=== PATIENT | female | born 1980 | race Caucasian/White ===

== ENCOUNTER 2016-07-08 07:33 | Day surgery (SDC) | payer BC ==
[~2016-07-08 07:33] MED LIST: Lactated Ringers 1,000 ML IV SCH; Lidocaine 2% 5 ML SDV ONE; Midazolam 1 MG/ML 2 ML SDV ONE; Propofol 200 MG/20 ML SDV ONE; Rocuronium 10 MG/ML 10 ML Syringe ONE; Sodium Chloride 0.9% 10 ML Syringe FLUSH PRN; Sodium Chloride 0.9% 2.5 ML Syringe FLUSH PRN; ceFAZolin 2 GM in Premix Bag 1 BAG IV ONE; fentaNYL 100 MCG/2 ML SDV ONE
[2016-07-08] MEDS ORDERED: Succinylcholine/Normal Saline 200 MG/10 ML Syringe IV ONE (07:39)
[2016-07-08] MEDS ORDERED: Ondansetron 4 MG/2 ML SDV ONE ×2 (08:23→14:42)
[2016-07-08] MEDS ORDERED: Scopolamine 1.5 MG Transdermal Patch TRDERM PRN (08:34)
--- NOTE | 2016-07-08 08:41 | PCM.PREANE ---
Preanesthetic Assessment - ANESTHESIA/TRANSFUSION/FAMILY HX Anesthesia/Transfusion History: Prior Anesthesia Type of Anesthesia Reaction: Reports: Excessive Nausea/Vomiting (scop patch, pepcid, intraop benadryl/decadron/zofran recommended). 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 Respiratory: Reports: no symptoms Cardiovascular: Reports: no symptoms GI: Reports: no symptoms Other: Reports: none - PHYSICAL ASSESSMENT O2 Sat by Pulse Oximetry: 99 RR: 16 Vital Signs: Last Vital Signs Temp 98.4 F 07/08/16 07:55 Pulse 67 07/08/16 07:55 Resp 16 07/08/16 07:55 BP 104/64 07/08/16 07:55 Pulse Ox 99 07/08/16 07:55 Height: 5 ft 4 in Weight: 137 lb NPO Status Date: 07/07/16 NPO Status Time: 18:00 ASA Class: 3 Mental Status: alert & oriented x3 Airway Class: Mallampati = 2 Dentition: Reports: broken tooth/teeth (very poor dentition - most teeth are black near the base; missing teeth especially upper left side; pt denies any loose teeth, but did inform pt that she is at a higher risk for a chipped or broken tooth d/t the current state of her dentition. Pt and verbalize understanding.), missing tooth/teeth Thyro-Mental Finger Breadths: 3 Mouth Opening Finger Breadths: 2 (TMJ) ROM/Head Extension: full Respiratory Status: lungs clear to auscultation bilaterally Cardiovascular Status: regular rate & rhythm, normal S1, S2, no murmur, blood pressure WNL - ALLERGIES Allergies/Adverse Reactions: Allergies Allergy/AdvReac Type Severity Reaction Status Date / Time acetaminophen [From Percocet] Allergy Itching Verified 06/26/16 08:10 amoxicillin Allergy Other Verified 06/26/16 08:10 codeine Allergy Itching Verified 06/26/16 08:10 crab Allergy Itching Verified 06/26/16 08:10 ketorolac [From Toradol] Allergy Vomiting Verified 06/26/16 08:10 latex Allergy Anaphylactic Verified 06/26/16 08:10 Shock meperidine HCl [From Demerol] Allergy Itching Verified 06/26/16 08:10 oxycodone HCl [From Percocet] Allergy Itching Verified 06/26/16 08:10 Penicillins Allergy Other Verified 06/26/16 08:10 prochlorperazine edisylate Allergy Anxiety Verified 06/26/16 08:10 [From Compazine] prochlorperazine maleate Allergy Anxiety Verified 06/26/16 08:10 [From Compazine] - BLOOD Blood Available: No Product(s) Available: None - ANESTHESIA PLAN Free Text/Narrative:: GETA with RSI - would recommend a smaller tube as airway looks irritated. Pt states she has 7/10 pain today, but when asked what she has been using for her gallbladder pain as well as her chronic pain she states "nothing" - states that she was taking tylenol up until a week ago when she came in for blood in her urine and was told her bilirubin was elevated. States the last time she had a pain pill was in april. Explained in depth that pain goes along with surgery - we will do our best to make that pain bearable, but her expectations need to be set prior to proceeding with this surgery. Pt and agree on this. Awaiting CMP to proceed with the case Medication Ordered: Antacids (pepcid), Other (scop patch for PONV) Preop Beta Sachin: No Anesthesia Type Planned: general anesthesia - ACKNOWLEDGEMENTS Pt an appropriate candidate for the planned anesthesia: Yes Alternatives and risks of anesthesia discussed w pt/guardian: Yes Pt/Guardian understands and agree with anesthesia plan: Yes PreAnesthesia Questionnaire HEENT History: Reports: Other (see below) (Pt states she was worked up by an ENT for her reflux - she has not been taking her omeprazole because she states she has been too sick, however her airway does look red and irritated.) Other HEENT History: wears glasses Cardiovascular History: Reports: None Respiratory History: Reports: Asthma Other Respiratory History: states asthma in the past as child - no current inhaler Gastrointestinal History: Reports: GERD (has not been taking omeprazole - irritated throat - states she was told that her reflux causes her to have airway spasms) Genitourinary History: Reports: Renal calculus (hx of stones and bilateral kidney cysts) ARTIST MODEL History: Reports: Musculoskeletal History: Reports: Back pain, chronic, Fracture, Fibromyalgia, Other (see below) Other Musculoskeletal History: hx of fx toe Neurological History: Reports: None Psychiatric History: Reports: Anxiety, Depression Endocrine/Metabolic History: Reports: Other (see below) Other Endocrine/Metabolic History: has thyroid nodules Hematologic History: Reports: None Immunologic History: Reports: None Oncologic (Cancer) History: Reports: None Dermatologic History: Reports: None - Infectious Disease History Infectious Disease History: Reports: Chicken pox - Past Surgical History Head Surgeries/Procedures: Reports: None HEENT Surgical History: Reports: None Cardiovascular Surgical History: Reports: None Respiratory Surgical History: Reports: None GI Surgical History: Reports: Appendectomy Female Surgical History: Reports: section, Cystectomy (ovarian cyst drained), Hysterectomy, Lithotripsy/ESWL, Tubal ligation, Other (see below) Other Female Surgeries/Procedures: Laparoscopy x2 Endocrine Surgical History: Reports: None Neurological Surgical History: Reports: None Oncologic Surgical History: Reports: None Dermatological Surgical History: Reports: None - SUBSTANCE USE Smoking Status *Q: Current Every Day Smoker (1/2 ppd) Tobacco Use Within Last Twelve Months: Cigarettes Second Hand Smoke Exposure: Yes Days Per Week of Alcohol Use: 0 Recreational Drug Use History: No - HOME MEDS Home Medications: Home Meds EPINEPHrine [Epipen] 1 dose SQ ASDIRECTED PRN 04/08/16 [History] Omeprazole 20 mg PO BID 07/03/16 [History] - CURRENT (IN HOUSE) MEDS Current Meds: Current Medications Famotidine (Pepcid) 20 mg IVPUSH .ONETIME MAGGIE Lactated Ringer's (Ringers, Lactated) 1,000 mls @ 125 mls/hr IV ASDIRECTED MAGGIE Last Admin: 07/08/16 07:57 Dose: 125 mls/hr Scopolamine (Transderm-Scop) 1.5 mg TRDERM .ONCE PRN PRN Reason: Post Op Nausea Sodium Chloride (Saline Flush) 10 ml FLUSH ASDIRECTED PRN PRN Reason: Keep Vein Open Sodium Chloride (Saline Flush) 2.5 ml FLUSH ASDIRECTED PRN PRN Reason: Keep Vein Open Discontinued Medications Fentanyl (Sublimaze) Confirm Administered Dose 100 mcg .ROUTE .STK-MED ONE Stop: 07/08/16 07:28 Cefazolin Sodium/Dextrose 2 gm (/ Premix) 50 mls @ 100 mls/hr IV ONETIME ONE Stop: 07/07/16 14:33 Lidocaine (Xylocaine-Mpf 2%) Confirm Administered Dose 5 ml .ROUTE .STK-MED ONE Stop: 07/08/16 07:27 Midazolam HCl (Versed 1 Mg/Ml) Confirm Administered Dose 2 mg .ROUTE .STK-MED ONE Stop: 07/08/16 07:28 Ondansetron HCl (Zofran) Confirm Administered Dose 4 mg .ROUTE .STK-MED ONE Stop: 07/08/16 08:24 Propofol (Diprivan 20 Ml) Confirm Administered Dose 200 mg .ROUTE .STK-MED ONE Stop: 07/08/16 07:28 Rocuronium Call (Zemuron) Confirm Administered Dose 100 mg .ROUTE .STK-MED ONE Stop: 07/08/16 07:27 Succinylcholine Chloride (Succinylcholine In Ns Pf) 200 mg IV .STK-MED ONE Stop: 07/08/16 07:40
[2016-07-08] MEDS ORDERED: Famotidine 20 MG/2 ML SDV IVPUSH SCH (08:45)
[2016-07-08] MEDS ORDERED: Bupivacaine 0.5% 30 ML SDV ONE ×2 (08:46→13:21)
[2016-07-08 09:22] LABS: CHLORIDE,CL 110 mmol/L (98-110); SODIUM,NA 140 mmol/L (136-146)
--- NOTE | 2016-07-08 10:07 | PCM.SN ---
- Free Text/Narrative Note: Patient had preoperative CMP performed today that showed an elevated bilirubin. The patient had a previous HIDA which showed no evidence of obstruction but no corresponding labs around the time of the procedure. Because of this, I feel the safest option is to get an MRCP today to completely rule out any evidence of obstruction. If there is none, then the elevated bilirubin is most likely due to biliary sludge and we will perform her laparoscopic cholecystectomy tomorrow.
[2016-07-08] MEDS ORDERED: Gadobutrol 10 mMOL/10 ML SDV IVPUSH STA (10:19)
--- NOTE | 2016-07-08 11:09 | PCM.SN ---
- Free Text/Narrative Note: MRCP showed no evidence of biliary obstruction. Will go to the OR today for laparoscopic possible open cholecystectomy.
[2016-07-08] MEDS ORDERED: Rocuronium 10 MG/ML 10 ML Syringe ONE (12:49)
[2016-07-08] MEDS ORDERED: Propofol 200 MG/20 ML SDV ONE (12:49)
[2016-07-08] MEDS ORDERED: fentaNYL 100 MCG/2 ML SDV ONE ×2 (12:49→14:42)
[2016-07-08] MEDS ORDERED: Midazolam 1 MG/ML 2 ML SDV ONE (12:49)
[2016-07-08] MEDS ORDERED: Lidocaine 2% 5 ML SDV ONE (12:49)
[2016-07-08] MEDS ORDERED: HYDROmorphone 2 MG/ML Syringe ONE (13:55)
[2016-07-08] MEDS ORDERED: Labetalol 5 MG/ML 5 ML Syringe ONE (14:23)
[2016-07-08] MEDS ORDERED: Neostigmine Methylsulfate 1 MG/ML 5 ML Syringe ONE (14:42)
[2016-07-08] MEDS ORDERED: Acetaminophen/HYDROcodone 325-5 MG Tab PO PRN (15:00)
--- NOTE | 2016-07-08 15:00 | PCM.OPNOTE ---
- General Post-Op/Procedure Note Date of Surgery/Procedure: 07/08/16 Operative Procedure(s): laparoscopic cholecystectomy Findings: Gallbladder with adhesions around the body Pre Op Diagnosis: biliary dyskinesia Post-Op Diagnosis: same Anesthesia Technique: General ET tube Primary Surgeon: Sally Morales Pathology: gallbladder EBL in mLs: 5 Condition: Good
[2016-07-08] MEDS: fentaNYL 100 MCG/2 ML SDV IVPUSH PRN ×4 (15:20→15:35)
--- NOTE | 2016-07-08 15:51 | PCM.POSTAN ---
POST ANESTHESIA ASSESSMENT - MENTAL STATUS Mental Status: alert, oriented - RESPIRATORY Respiratory Status: respiratory rate WNL, airway patent, O2 saturation stable - CARDIOVASCULAR CV Status: pulse rate WNL, blood pressure stable - GASTROINTESTINAL GI Status: no symptoms - PAIN Pain Score: 5 - POST OP HYDRATION Hydration Status: adequate & stable
--- NOTE | 2016-07-08 16:07 | MR ---
EXAMINATION: MRI abdomen with and without contrast HISTORY: Hyperbilirubinemia COMPARISON: CT dated 06/26/2016 TECHNIQUE: Multiplanar multisequence images obtained through the abdomen before and following the ad ministration of Gadavist. FINDINGS: There are a few tiny cyst noted within the breasts. The liver appears normal in signal. No focal mass. The spleen, adrenal glands, and pancreas appear normal. The gallbladder appears normal. The common bile duct measures 2 to 3 mm in diameter without filling defect. The kidneys enhance and function symmetrically without evidence of obstructive uropathy. Small renal cysts are noted. No ab dominal ascites. No abnormal bone marrow signal. IMPRESSION: 1. Grossly unremarkable MRI of the abdomen/MRCP.
[2016-07-08 16:48] VITALS: BP 121/78
--- NOTE | 2016-07-08 16:57 | PCM48HPAN ---
Post Anesthesia Note - EVALUATION WITHIN 48HRS OF ANESTHETIC Vital Signs in Normal Range: Yes Patient Participated in Evaluation: Yes Respiratory Function Stable: Yes Airway Patent: Yes Cardiovascular Function Stable: Yes Hydration Status Stable: Yes Pain Control Satisfactory: Yes Nausea and Vomiting Control Satisfactory: Yes Mental Status Recovered: Yes
--- NOTE | 2016-07-08 23:38 | OR ---
SURGEON: STEWART LEVY MD DATE OF PROCEDURE: 07/08/2016 PREOPERATIVE DIAGNOSIS: Biliary dyskinesia. POSTOPERATIVE DIAGNOSIS: Biliary dyskinesia. PROCEDURE: Laparoscopic cholecystectomy. ANESTHESIA: General endotracheal anesthesia. ESTIMATED BLOOD LOSS: 5 mL. FINDINGS: Gallbladder with adhesions to surrounding omentum and bowel. COMPLICATIONS: None. INDICATIONS: The patient is a 36-year-old female, who has been experiencing postprandial right upper quadrant pain that radiates down her side and into her back. HIDA scan was performed that showed a decreased ejection fraction. The patient originally was seen in the emergency room and had a hyperbilirubinemia of 2.5. A CMP was performed today before the surgery that showed persistent hyperbilirubinemia. Since no labs were done on the day of her HIDA scan, the decision was made to perform an MRCP preoperatively to rule out any choledocholithiasis. MRCP was performed and was read as normal. The decision was made to go for with the procedure. Prior to her coming in for the surgery, we had had a discussion in the clinic regarding the need for cholecystectomy given her biliary dyskinesia. I explained both the laparoscopic and open cholecystectomy procedures to the patient. Should I be unable to perform it laparoscopically, we will convert to open. We discussed the risks including bleeding, infection, or damage to surrounding structures. The patient verbalized understanding and wishes to proceed. PROCEDURE IN DETAIL: The patient was brought to the operating room and placed on the operating room table in supine position. General endotracheal anesthesia was induced. A time- out was completed verifying the patient's name, age, date of , allergies, and procedure to be performed. The left arm was tucked at the patient's side and a Rosario catheter was placed. The abdomen was prepped and draped in the usual standard fashion. The natural skin line below the umbilicus was anesthetized with 0.5% Marcaine. Using an #11 blade, an incision was made in the natural skin line below the umbilicus. Using cautery, I dissected down to the subcutaneous fat. S retractors were used to dissect down to the fascia. The fascia was then grasped with Claus clamps, elevated and incised. The peritoneum was noted and was similarly elevated and incised. Entry into the peritoneum was confirmed visually and no bowel was noted within the vicinity of the incision. Two [id number] anchoring suture of 0 Vicryl was placed and a 12 mm blunt tip trocar was inserted under direct visualization. The abdomen was insufflated with carbon dioxide to a pressure of 12 to 15 mmHg. The patient tolerated the insufflation well. The laparoscope was inserted and the abdomen inspected. No injuries from initial trocar placement were noted. Additional trocars were then inserted in the following locations; 5 mm trocar in the right epigastrium and two 5 mm trocars along the right costal margin. The abdomen was inspected and no abnormalities were found. The table was placed in reverse Trendelenburg position with the right side up. Filmy adhesions between the gallbladder and omentum and duodenum were gently dissected. This allowed visualization of the dome of the gallbladder. The dome of the gallbladder was grasped with an atraumatic grasper, passed through the lateral port, and retracted over the dome of the liver. The infundibulum was then grasped with an atraumatic grasper through the midclavicular port and retracted towards the right lower quadrant. This maneuver exposed Calot's triangle. The peritoneum overlying the gallbladder and infundibulum was then gently dissected and incised using hook cautery. This was done until the cystic duct and cystic artery were identified and circumferentially dissected. The proximal gallbladder plate was also dissected to obtain a critical view. Once the critical view was obtained, the cystic duct and artery were then doubly clipped and divided close to the gallbladder. The gallbladder was then dissected from its peritoneal attachments by electrocautery. Hemostasis was checked in the gallbladder and the gallbladder was removed using an endoscopic retrieval bag placed through the infraumbilical port site. The gallbladder was passed off the table as specimen. The gallbladder fossa was copiously irrigated with saline and hemostasis was obtained. There was no evidence of bleeding from the gallbladder fossa or cystic artery or leakage of bile from the cystic duct stump. Secondary trocars were then removed under direct visualization and no bleeding was noted at the peritoneal site. The laparoscope was withdrawn and the umbilical trocar removed. The abdomen was allowed to collapse. A 0.5% Marcaine was used to anesthetize the fascia around the infraumbilical port site. The 0 Vicryl suture was then tied and appropriate fascial closure was noted. The infraumbilical port site was then closed with 3-0 Vicryl sutures interrupted and placed in the subcutaneous fat as well as a 4-0 running Monocryl subcuticular suture was used to close the skin. The remainder of the port sites were closed with interrupted 4-0 Monocryl sutures. Steri-Strips and sterile dressings were applied. The patient tolerated the procedure well and was taken to the postoperative care unit in stable condition. Counts were complete and correct at the end of the case. ORAL MARTIN /[id number]
== END 2016-07-08 16:50 | disposition home or self-care (01) ==
LOC: MW.SDS 07:33
PROVIDERS: ATTEND Surgery
DX: K81.1 Chronic cholecystitis (principal); F32.9 Major depressive disorder, single episode, unspecified; K21.9 Gastro-esophageal reflux disease without esophagitis; E80.6 Other disorders of bilirubin metabolism; Z88.0 Allergy status to penicillin; Z88.1 Allergy status to other antibiotic agents; Z88.6 Allergy status to analgesic agent; Z91.040 Latex allergy status; Z91.013 Allergy to seafood; Z88.8 Allergy status to other drugs, medicaments and biological substances; Z79.899 Other long term (current) drug therapy; Z90.710 Acquired absence of both cervix and uterus; Z98.890 Other specified postprocedural states; Z98.51 Tubal ligation status; F17.200 Nicotine dependence, unspecified, uncomplicated
CPT/HCPCS: 36415; 47562; 74183; 80053; A9270; J0690; J1170; J2250; J2405; J2710; J3010; J7120; 00790; 88304; J2704

== ENCOUNTER → 2016-08-03 | Outpatient (CLI) | payer BC ==
[2016-08-03 15:17] LABS: CHLORIDE,CL 109 mmol/L (98-110); SODIUM,NA 142 mmol/L (136-146)
== END | disposition home or self-care (01) ==
LOC: MW.CHGS 14:29
PROVIDERS: ATTEND Surgery
DX: Z09 Encounter for follow-up examination after completed treatment for conditions other than malignant neoplasm (principal); G89.18 Other acute postprocedural pain; R10.84 Generalized abdominal pain
CPT/HCPCS: 36415; 80053; 85027

== ENCOUNTER → 2016-08-18 | Outpatient (CLI) | payer BC ==
[~2016-08-18] MED LIST changes: +Iopamidol 755 MG/ML 500 ML Multipack Bottle IVPUSH ONE; -Lactated Ringers 1,000 ML IV SCH; -Lidocaine 2% 5 ML SDV ONE; -Midazolam 1 MG/ML 2 ML SDV ONE; -Propofol 200 MG/20 ML SDV ONE; -Rocuronium 10 MG/ML 10 ML Syringe ONE; -Sodium Chloride 0.9% 10 ML Syringe FLUSH PRN; -Sodium Chloride 0.9% 2.5 ML Syringe FLUSH PRN; -ceFAZolin 2 GM in Premix Bag 1 BAG IV ONE; -fentaNYL 100 MCG/2 ML SDV ONE
--- NOTE | 2016-08-18 13:59 | CT ---
CT of the abdomen and pelvis with contrast. HISTORY: Pain TECHNIQUE: Axial CT images were obtained of the abdomen and pelvis following administration of 100 m L of Isovue-370 in the right antecubital fossa without complication. Coronal and sagittal reconstruc tions obtained. FINDINGS: The lung bases are clear, no pleural effusion. The liver, spleen, adrenal glands, and pancreas appear unremarkable. Cholecystectomy clips are noted . The common bile duct appears otherwise normal. No bulky retroperitoneal lymphadenopathy. No abdomi nal ascites. The kidneys enhance and function symmetrically without evidence of obstructive uropathy. There is a small cyst within the lower pole of the left kidney. There is likely a tiny angiomyolipoma within th e mid pole of the right kidney anteriorly. The large and small bowel are normal in caliber without evidence of obstruction. No pericolonic infl ammation or stranding. No pelvic lymphadenopathy or free pelvic fluid. The urinary bladder is decomp ressed. No suspicious osseous abnormalities. IMPRESSION: 1. Cholecystectomy, hysterectomy, appendectomy. 2. No acute findings within the abdomen or pelvis.
== END | disposition home or self-care (01) ==
LOC: MW.DI 10:48
PROVIDERS: ATTEND Surgery
DX: R10.9 Unspecified abdominal pain (principal); G89.18 Other acute postprocedural pain; Z90.49 Acquired absence of other specified parts of digestive tract; Z90.710 Acquired absence of both cervix and uterus; Z90.89 Acquired absence of other organs
CPT/HCPCS: 74177; Q9967

== ENCOUNTER 2016-09-24 12:31 | Emergency (ER) | payer BC ==
[2016-09-24] MEDS ORDERED: Ondansetron 4 MG/2 ML SDV IVPUSH ONE (13:13)
[2016-09-24] MEDS ORDERED: Sodium Chloride 0.9% 1,000 ML IV ONE (13:13)
--- NOTE | 2016-09-24 13:33 | EDM.PDOC ---
ED HPI GENERAL MEDICAL PROBLEM - General Chief Complaint: Genitourinary Problem Stated Complaint: KIDNEY STONE Time Seen by Provider: 09/24/16 13:32 Source of Information: Reports: Patient - History of Present Illness INITIAL COMMENTS - FREE TEXT/NARRATIVE: HISTORY AND PHYSICAL: History of present illness: [] Patient presents with left flank pain radiating to the abdomen for one week she rates 8/10, she has a history of renal stones passing multiple stones since her teens as well as ureteral stenting performed previously in the [place] No fever nausea vomiting chills sweats no chest pain shortness breath headache dizziness or palpitation no bowel or urine symptoms History of cholecystectomy earlier this spring Review of systems: As per history of present illness and below otherwise all systems reviewed and negative. Past medical history: As per history of present illness and as reviewed below otherwise noncontributory. Surgical history: As per history of present illness and as reviewed below otherwise noncontributory. Social history: No reported history of drug or alcohol abuse. Family history: As per history of present illness and as reviewed below otherwise noncontributory. Physical exam: HEENT: Atraumatic, normocephalic, pupils reactive, negative for conjunctival pallor or scleral icterus, mucous membranes moist, throat clear, neck supple, nontender, trachea midline. Lungs: Clear to auscultation, breath sounds equal bilaterally, chest nontender. Heart: S1S2, regular, negative for clicks, rubs, or JVD. Abdomen: Soft, nondistended, nontender. Negative for masses or hepatosplenomegaly. Negative for costovertebral tenderness. Pelvis: Stable nontender. Genitourinary: Deferred. Rectal: Deferred. Extremities: Atraumatic, negative for cords or calf pain. Neurovascular unremarkable. Neuro: Awake, alert, oriented. Cranial nerves II through XII unremarkable. Cerebellum unremarkable. Motor and sensory unremarkable throughout. Exam nonfocal. Diagnostics: [] Lab as below CT abdomen pelvis no contrast Therapeutics: [] Liter normal saline bolus Zofran 8 mg IV Impression: [] Left flank pain Definitive disposition and diagnosis as appropriate pending reevaluation and review of above. Bilateral Middle Pelvic Pain Score (Numeric/FACES): 8 - Related Data Allergies Allergy/AdvReac Type Severity Reaction Status Date / Time acetaminophen [From Percocet] Allergy Itching Verified 06/26/16 08:10 amoxicillin Allergy Other Verified 06/26/16 08:10 codeine Allergy Itching Verified 06/26/16 08:10 crab Allergy Itching Verified 06/26/16 08:10 ketorolac [From Toradol] Allergy Vomiting Verified 06/26/16 08:10 latex Allergy Anaphylactic Verified 06/26/16 08:10 Shock meperidine HCl [From Demerol] Allergy Itching Verified 06/26/16 08:10 oxycodone HCl [From Percocet] Allergy Itching Verified 06/26/16 08:10 Penicillins Allergy Other Verified 06/26/16 08:10 prochlorperazine edisylate Allergy Anxiety Verified 06/26/16 08:10 [From Compazine] prochlorperazine maleate Allergy Anxiety Verified 06/26/16 08:10 [From Compazine] Home Meds: Home Meds EPINEPHrine [Epipen] 1 dose SQ ASDIRECTED PRN 04/08/16 [History] Omeprazole 20 mg PO BID 07/03/16 [History] Past Medical History HEENT History: Reports: 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) Other HEENT History: wears glasses Cardiovascular History: Reports: None Respiratory History: Reports: Asthma Other Respiratory History: states asthma in the past as child - no current inhaler Gastrointestinal History: Reports: GERD Genitourinary History: Reports: Renal Calculus 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: , 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) Musculoskeletal History: Reports: Back Pain, Chronic, Fracture, Fibromyalgia, 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) Other Musculoskeletal History: hx of fx toe Neurological History: Reports: None Psychiatric History: Reports: Anxiety, Depression Endocrine/Metabolic History: Reports: None, 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) Other Endocrine/Metabolic History: has thyroid nodules Hematologic History: Reports: None Immunologic History: Reports: None Oncologic (Cancer) History: Reports: None Dermatologic History: Reports: None - Infectious Disease History Infectious Disease History: Reports: Chicken Pox - Past Surgical History Head Surgeries/Procedures: Reports: None Cardiovascular Surgical History: Reports: None Respiratory Surgical History: Reports: None GI Surgical History: Reports: Appendectomy Female Surgical History: Reports: Section, Cystectomy, Hysterectomy , Lithotripsy/ESWL, Tubal Ligation, 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) Neurological Surgical History: Reports: None Oncologic Surgical History: Reports: None Dermatological Surgical History: Reports: None Social & Family History - Family History Family Medical History: Noncontributory - Tobacco Use Smoking Status *Q: Current Every Day Smoker Years of Tobacco use: 6 Packs/Tins Daily: 0.5 Used Tobacco, but Quit: No Month Tobacco Last Used: states she is trying to quit, smokes on average 5 cigarettes per day Second Hand Smoke Exposure: Yes - Caffeine Use Caffeine Use: Reports: Coffee, Soda - Alcohol Use Days Per Week of Alcohol Use: 0 - Recreational Drug Use Recreational Drug Use: No Drug Use in Last 12 Months: No ED ROS GENERAL - Review of Systems Review Of Systems: ROS reveals no pertinent complaints other than HPI. ED EXAM, GENERAL - Physical Exam Exam: See Below Course - Vital Signs Last Recorded V/S: Last Vital Signs Temp 36.8 C 09/24/16 12:40 Pulse 105 H 09/24/16 12:40 Resp 18 09/24/16 12:40 BP 112/80 09/24/16 12:40 Pulse Ox - Orders/Labs/Meds Orders: Active Orders 24 hr Category Date Time Status CULTURE URINE [RM] Stat Lab 09/24/16 13:45 Received Labs: Laboratory Tests 09/24/16 09/24/16 09/24/16 Range/Units 13:11 13:28 13:28 WBC 7.38 (4.0-11.0) K/uL RBC 5.16 (4.30-5.90) M/uL Hgb 15.7 (12.0-16.0) g/dL Hct 44.8 (36.0-46.0) % MCV 86.8 (80.0-98.0) fL MCH 30.4 (27.0-32.0) pg MCHC 35.0 (31.0-37.0) g/dL RDW Std Deviation 40.3 (28.0-62.0) fl RDW Coeff of Lamar 13 (11.0-15.0) % Plt Count 239 (150-400) K/uL MPV 10.80 (7.40-12.00) fL Neut % (Auto) 61.2 (48.0-80.0) % Lymph % (Auto) 31.2 (16.0-40.0) % [place] % (Auto) 6.2 (0.0-15.0) % Eos % (Auto) 0.9 (0.0-7.0) % Baso % (Auto) 0.5 (0.0-1.5) % Neut # (Auto) 4.5 (1.4-5.7) K/uL Lymph # (Auto) 2.3 (0.6-2.4) K/uL [place] # (Auto) 0.5 (0.0-0.8) K/uL Eos # (Auto) 0.1 (0.0-0.7) K/uL Baso # (Auto) 0.0 (0.0-0.1) K/uL Nucleated RBC % 0.0 /100WBC Nucleated RBCs # 0 K/uL Sodium 140 (136-146) mmol/L Potassium 3.6 (3.5-5.1) mmol/L Chloride 108 (98-110) mmol/L Carbon Dioxide 22 (21-31) mmol/L BUN 7 (6.0-23.0) mg/dL Creatinine 0.7 (0.6-1.5) mg/dL Est Cr Clr Drug Dosing 96.86 mL/min Estimated GFR (MDRD) > 60.0 ml/min Glucose 81 (60-110) mg/dL Calcium 9.9 (8.8-10.8) mg/dL Total Bilirubin 0.8 (0.1-1.5) mg/dL AST 13 (5-40) IU/L ALT 9 (8-54) IU/L Alkaline Phosphatase 63 (40-150) Total Protein 7.8 (6.0-8.0) g/dL Albumin 4.4 (3.5-5.0) g/dL Globulin 3.4 (2.0-3.5) g/dL Albumin/Globulin Ratio 1.3 (1.3-2.8) Urine Color Urine Appearance Urine pH (5.0-8.0) Ur Specific [place] (1.001-1.035) Urine Protein (NEGATIVE) mg/dL Urine Glucose (UA) (NEGATIVE) mg/dL Urine Ketones (NEGATIVE) mg/dL Urine Occult Blood (NEGATIVE) Urine Nitrite (NEGATIVE) Urine Bilirubin (NEGATIVE) Urine Urobilinogen (<2.0) EU/dL Ur Leukocyte Esterase (NEGATIVE) Urine RBC (0-2/HPF) Urine WBC (0-5/HPF) Ur Epithelial Cells (NONE-FEW) Urine Bacteria (NEGATIVE) Urine HCG, Qual NEGATIVE (NEGATIVE) 09/24/16 Range/Units 13:45 WBC (4.0-11.0) K/uL RBC (4.30-5.90) M/uL Hgb (12.0-16.0) g/dL Hct (36.0-46.0) % MCV (80.0-98.0) fL MCH (27.0-32.0) pg MCHC (31.0-37.0) g/dL RDW Std Deviation (28.0-62.0) fl RDW Coeff of Lamar (11.0-15.0) % Plt Count (150-400) K/uL MPV (7.40-12.00) fL Neut % (Auto) (48.0-80.0) % Lymph % (Auto) (16.0-40.0) % [place] % (Auto) (0.0-15.0) % Eos % (Auto) (0.0-7.0) % Baso % (Auto) (0.0-1.5) % Neut # (Auto) (1.4-5.7) K/uL Lymph # (Auto) (0.6-2.4) K/uL [place] # (Auto) (0.0-0.8) K/uL Eos # (Auto) (0.0-0.7) K/uL Baso # (Auto) (0.0-0.1) K/uL Nucleated RBC % /100WBC Nucleated RBCs # K/uL Sodium (136-146) mmol/L Potassium (3.5-5.1) mmol/L Chloride (98-110) mmol/L Carbon Dioxide (21-31) mmol/L BUN (6.0-23.0) mg/dL Creatinine (0.6-1.5) mg/dL Est Cr Clr Drug Dosing mL/min Estimated GFR (MDRD) ml/min Glucose (60-110) mg/dL Calcium (8.8-10.8) mg/dL Total Bilirubin (0.1-1.5) mg/dL AST (5-40) IU/L ALT (8-54) IU/L Alkaline Phosphatase (40-150) Total Protein (6.0-8.0) g/dL Albumin (3.5-5.0) g/dL Globulin (2.0-3.5) g/dL Albumin/Globulin Ratio (1.3-2.8) Urine Color YELLOW Urine Appearance CLEAR Urine pH 6.5 (5.0-8.0) Ur Specific [place] <= 1.005 (1.001-1.035) Urine Protein NEGATIVE (NEGATIVE) mg/dL Urine Glucose (UA) NEGATIVE (NEGATIVE) mg/dL Urine Ketones NEGATIVE (NEGATIVE) mg/dL Urine Occult Blood NEGATIVE (NEGATIVE) Urine Nitrite NEGATIVE (NEGATIVE) Urine Bilirubin NEGATIVE (NEGATIVE) Urine Urobilinogen 0.2 (<2.0) EU/dL Ur Leukocyte Esterase NEGATIVE (NEGATIVE) Urine RBC 0-1 (0-2/HPF) Urine WBC 0-1 (0-5/HPF) Ur Epithelial Cells FEW (NONE-FEW) Urine Bacteria RARE (NEGATIVE) Urine HCG, Qual (NEGATIVE) Meds: Medications Discontinued Medications Generic Name Dose Route Start Last Admin Trade Name Freq PRN Reason Stop Dose Admin Hydromorphone HCl 0.5 mg 09/24/16 13:49 09/24/16 14:10 Dilaudid IVPUSH 09/24/16 13:50 0.5 mg ONETIME ONE Administration Sodium Chloride 1,000 mls @ 999 mls/hr 09/24/16 13:13 09/24/16 13:41 Normal Saline IV 09/24/16 14:13 999 mls/hr STAT ONE Administration Ondansetron HCl 8 mg 09/24/16 13:13 09/24/16 13:42 Zofran IVPUSH 09/24/16 13:14 8 mg ONETIME ONE Administration Departure - Departure Time of Disposition: 14:45 Disposition: Home, Self-Care 01 Condition: good Clinical Impression: Left flank pain - Discharge Information Referrals: Rafal Witt PA [Primary Care Provider] - Forms: ED Department Discharge Additional Instructions: Return if symptoms persist or worsen or new concerning symptomatology develops Medication as prescribed Operative primary care in 2 weeks or as needed Consider urology followup as he was and he does not seem urologist some time As discussed she will require either a taxi for a sweeper driver post pain medication as discussed [facility] [place] [facility] [address] [place] [id number] [facility] - Primary Care [address] [place] [id number] The following information is given to patients seen in the emergency department who are being discharged to home. This information is to outline your options for follow-up care. We provide all patients seen in our emergency department with a follow-up referral. The need for follow-up, as well as the timing and circumstances, are variable depending upon the specifics of your emergency department visit. If you don't have a primary care physician on staff, we will provide you with a referral. We always advise you to contact your personal physician following an emergency department visit to inform them of the circumstance of the visit and for follow-up with them and/or the need for any referrals to a consulting specialist. The emergency department will also refer you to a specialist when appropriate. This referral assures that you have the opportunity for follow-up care with a specialist. All of these measure are taken in an effort to provide you with optimal care, which includes your follow-up. Under all circumstances we always encourage you to contact your private physician who remains a resource for coordinating your care. When calling for follow-up care, please make the office aware that this follow-up is from your recent emergency room visit. If for any reason you are refused follow-up, please contact the [facility] emergency department at and asked to speak to the emergency department charge nurse. - My Orders Last 24 Hours: My Active Orders 09/24/16 13:45 CULTURE URINE [RM] Stat - Assessment/Plan Last 24 Hours: My Active Orders 09/24/16 13:45 CULTURE URINE [RM] Stat
[2016-09-24] MEDS ORDERED: HYDROmorphone 2 MG/ML Syringe IVPUSH ONE (13:49)
[2016-09-24 14:14] LABS: CHLORIDE,CL 108 mmol/L (98-110); SODIUM,NA 140 mmol/L (136-146)
--- NOTE | 2016-09-24 14:32 | CT ---
CT of the abdomen and pelvis without contrast. HISTORY: Pain TECHNIQUE: Axial CT images were obtained of the abdomen and pelvis without contrast. Coronal and sag ittal reconstructions obtained. FINDINGS: The lung bases are clear, no pleural effusion. The liver, spleen, adrenal glands, and pancreas appear unremarkable for noncontrast examination. Cho lecystectomy. There is no bulky retroperitoneal lymphadenopathy. No abdominal ascites. There are no calcifications noted within the kidneys or along the courses of the ureters bilaterally . The large and small bowel are normal in caliber without evidence of obstruction. Appendectomy. There is no bulky pelvic lymphadenopathy. No free fluid. No free air. The urinary bladder appears normal. There are tiny right ovarian cyst noted. The visualized osseous structures appear normal. IMPRESSION: No acute findings within the abdomen or pelvis.
[2016-09-24 15:27] VITALS: BP 109/81
== END 2016-09-24 15:25 | disposition home or self-care (01) ==
LOC: MW.ED 12:31
DX: R10.9 Unspecified abdominal pain (principal); J45.909 Unspecified asthma, uncomplicated; K21.9 Gastro-esophageal reflux disease without esophagitis; F41.8 Other specified anxiety disorders; F17.210 Nicotine dependence, cigarettes, uncomplicated; Z90.710 Acquired absence of both cervix and uterus; Z98.890 Other specified postprocedural states; Z88.0 Allergy status to penicillin; Z88.1 Allergy status to other antibiotic agents; Z88.6 Allergy status to analgesic agent; Z88.5 Allergy status to narcotic agent; Z88.8 Allergy status to other drugs, medicaments and biological substances; Z91.040 Latex allergy status
CPT/HCPCS: 36415; 74176; 80053; 81001; 81025; 85025; 87086; 96361; 96374; 96375; 99284; J1170; J2405; J7040

== ENCOUNTER 2016-10-02 12:39 | Emergency (ER) | payer BC ==
[2016-10-02 13:39] LABS: CHLORIDE,CL 109 mmol/L (98-110); SODIUM,NA 141 mmol/L (136-146)
--- NOTE | 2016-10-02 13:54 | EDM.PDOC ---
ED HPI GENERAL MEDICAL PROBLEM - General Chief Complaint: Abdominal Pain Stated Complaint: ABD PAINS Time Seen by Provider: 10/02/16 13:40 Source of Information: Reports: Patient History Limitations: Reports: No Limitations - History of Present Illness INITIAL COMMENTS - FREE TEXT/NARRATIVE: History of present illness: [36-year-old female presenting with abdominal pain. Patient has chronic component to her pain and has had it worked up extensively. She indicated she had 8 appointment with her primary care provider today for further evaluation of her abdominal pain but it becomes extreme she couldn't wait to be seen by him and so came in today I be evaluated] Review of systems: As per history of present illness and below otherwise all systems reviewed and negative. Past medical history: As per history of present illness and as reviewed below otherwise noncontributory. Surgical history: As per history of present illness and as reviewed below otherwise noncontributory. Social history: No reported history of drug or alcohol abuse. Family history: As per history of present illness and as reviewed below otherwise noncontributory. Physical exam: HEENT: Atraumatic, normocephalic, pupils reactive, negative for conjunctival pallor or scleral icterus, mucous membranes moist, throat clear, neck supple, nontender, trachea midline. Lungs: Clear to auscultation, breath sounds equal bilaterally, chest nontender. Heart: S1S2, regular, negative for clicks, rubs, or JVD. Abdomen: Soft, patient indicates that she has exquisite tenderness in her lower pelvic region bilaterally and cannot tolerate any real palpation. Negative for masses or hepatosplenomegaly. Negative for costovertebral tenderness. Pelvis: Stable nontender. Genitourinary: Deferred. Rectal: Deferred. Extremities: Atraumatic, negative for cords or calf pain. Neurovascular unremarkable. Neuro: Awake, alert, oriented. Cranial nerves II through XII unremarkable. Cerebellum unremarkable. Motor and sensory unremarkable throughout. Exam nonfocal. Save her stated abdominal/pelvic pain which patient cannot tolerate palpation for global assessment is benign. Diagnostics: [CBC, CMP, UA, CT with contrast] Therapeutics: [] Impression: [ovarian cyst] Plan: [Followup with women's health] Definitive disposition and diagnosis as appropriate pending reevaluation and review of above. Abdominal Pain Score (Numeric/FACES): 10 - Related Data Allergies Allergy/AdvReac Type Severity Reaction Status Date / Time acetaminophen [From Percocet] Allergy Itching Verified 10/02/16 12:48 amoxicillin Allergy Other Verified 10/02/16 12:48 codeine Allergy Itching Verified 10/02/16 12:48 crab Allergy Itching Verified 10/02/16 12:48 ketorolac [From Toradol] Allergy Vomiting Verified 10/02/16 12:48 latex Allergy Anaphylactic Verified 10/02/16 12:48 Shock meperidine HCl [From Demerol] Allergy Itching Verified 10/02/16 12:48 oxycodone HCl [From Percocet] Allergy Itching Verified 10/02/16 12:48 Penicillins Allergy Other Verified 10/02/16 12:48 prochlorperazine edisylate Allergy Anxiety Verified 10/02/16 12:48 [From Compazine] prochlorperazine maleate Allergy Anxiety Verified 06/26/16 08:10 [From Compazine] Home Meds: Home Meds EPINEPHrine [Epipen] 1 dose SQ ASDIRECTED PRN 04/08/16 [History] Past Medical History HEENT History: Reports: 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) Other HEENT History: wears glasses Cardiovascular History: Reports: None Respiratory History: Reports: Asthma Other Respiratory History: states asthma in the past as child - no current inhaler Gastrointestinal History: Reports: GERD Genitourinary History: Reports: Renal Calculus 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: , 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) Musculoskeletal History: Reports: Back Pain, Chronic, Fracture, Fibromyalgia, 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) Other Musculoskeletal History: hx of fx toe Neurological History: Reports: None Psychiatric History: Reports: Anxiety, Depression Endocrine/Metabolic History: Reports: None, 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) Other Endocrine/Metabolic History: has thyroid nodules Hematologic History: Reports: None Immunologic History: Reports: None Oncologic (Cancer) History: Reports: None Dermatologic History: Reports: None - Infectious Disease History Infectious Disease History: Reports: Chicken Pox - Past Surgical History Head Surgeries/Procedures: Reports: None Cardiovascular Surgical History: Reports: None Respiratory Surgical History: Reports: None GI Surgical History: Reports: Appendectomy Female Surgical History: Reports: Section, Cystectomy, Hysterectomy , Lithotripsy/ESWL, Tubal Ligation, 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) Neurological Surgical History: Reports: None Oncologic Surgical History: Reports: None Dermatological Surgical History: Reports: None Social & Family History - Family History Family Medical History: Noncontributory - Tobacco Use Smoking Status *Q: Current Every Day Smoker Years of Tobacco use: 10 Packs/Tins Daily: 0.2 Used Tobacco, but Quit: No Month Tobacco Last Used: states she is trying to quit, smokes on average 5 cigarettes per day Second Hand Smoke Exposure: Yes - Caffeine Use Caffeine Use: Reports: Coffee, Soda - Alcohol Use Days Per Week of Alcohol Use: 0 - Recreational Drug Use Recreational Drug Use: No Drug Use in Last 12 Months: No ED ROS GENERAL - Review of Systems Review Of Systems: See Below (See history of present illness) ED EXAM, GI/ABD - Physical Exam Exam: See Below (History of present illness) Course - Vital Signs Last Recorded V/S: Last Vital Signs Temp 36.9 C 10/02/16 12:42 Pulse 126 H 10/02/16 12:42 Resp 18 10/02/16 12:42 BP 116/85 10/02/16 12:42 Pulse Ox 98 10/02/16 12:42 - Orders/Labs/Meds Labs: Laboratory Tests 10/02/16 10/02/16 10/02/16 Range/Units 12:48 12:48 12:50 WBC 8.55 (4.0-11.0) K/uL RBC 5.11 (4.30-5.90) M/uL Hgb 15.5 (12.0-16.0) g/dL Hct 45.2 (36.0-46.0) % MCV 88.5 (80.0-98.0) fL MCH 30.3 (27.0-32.0) pg MCHC 34.3 (31.0-37.0) g/dL RDW Std Deviation 40.8 (28.0-62.0) fl RDW Coeff of Lamar 13 (11.0-15.0) % Plt Count 264 (150-400) K/uL MPV 10.70 (7.40-12.00) fL Neut % (Auto) 58.8 (48.0-80.0) % Lymph % (Auto) 35.6 (16.0-40.0) % Carter % (Auto) 4.4 (0.0-15.0) % Eos % (Auto) 0.8 (0.0-7.0) % Baso % (Auto) 0.4 (0.0-1.5) % Neut # (Auto) 5.0 (1.4-5.7) K/uL Lymph # (Auto) 3.0 H (0.6-2.4) K/uL Carter # (Auto) 0.4 (0.0-0.8) K/uL Eos # (Auto) 0.1 (0.0-0.7) K/uL Baso # (Auto) 0.0 (0.0-0.1) K/uL Nucleated RBC % 0.0 /100WBC Nucleated RBCs # 0 K/uL Sodium (136-146) mmol/L Potassium (3.5-5.1) mmol/L Chloride (98-110) mmol/L Carbon Dioxide (21-31) mmol/L BUN (6.0-23.0) mg/dL Creatinine (0.6-1.5) mg/dL Est Cr Clr Drug Dosing Estimated GFR (MDRD) ml/min Glucose (60-110) mg/dL Calcium (8.8-10.8) mg/dL Total Bilirubin (0.1-1.5) mg/dL AST (5-40) IU/L ALT (8-54) IU/L Alkaline Phosphatase (40-150) Total Protein (6.0-8.0) g/dL Albumin (3.5-5.0) g/dL Globulin (2.0-3.5) g/dL Albumin/Globulin Ratio (1.3-2.8) Urine Color YELLOW Urine Appearance CLEAR Urine pH 5.5 (5.0-8.0) Ur Specific [place] 1.020 (1.001-1.035) Urine Protein NEGATIVE (NEGATIVE) mg/dL Urine Glucose (UA) NEGATIVE (NEGATIVE) mg/dL Urine Ketones NEGATIVE (NEGATIVE) mg/dL Urine Occult Blood TRACE-INTACT (NEGATIVE) Urine Nitrite NEGATIVE (NEGATIVE) Urine Bilirubin NEGATIVE (NEGATIVE) Urine Urobilinogen 0.2 (<2.0) EU/dL Ur Leukocyte Esterase NEGATIVE (NEGATIVE) Urine RBC 4-6 (0-2/HPF) Urine WBC 2-4 (0-5/HPF) Ur Epithelial Cells MODERATE (NONE-FEW) Urine Bacteria FEW (NEGATIVE) Urine HCG, Qual NEGATIVE (NEGATIVE) 10/02/16 Range/Units 12:50 WBC (4.0-11.0) K/uL RBC (4.30-5.90) M/uL Hgb (12.0-16.0) g/dL Hct (36.0-46.0) % MCV (80.0-98.0) fL MCH (27.0-32.0) pg MCHC (31.0-37.0) g/dL RDW Std Deviation (28.0-62.0) fl RDW Coeff of Lamar (11.0-15.0) % Plt Count (150-400) K/uL MPV (7.40-12.00) fL Neut % (Auto) (48.0-80.0) % Lymph % (Auto) (16.0-40.0) % [place] % (Auto) (0.0-15.0) % Eos % (Auto) (0.0-7.0) % Baso % (Auto) (0.0-1.5) % Neut # (Auto) (1.4-5.7) K/uL Lymph # (Auto) (0.6-2.4) K/uL [place] # (Auto) (0.0-0.8) K/uL Eos # (Auto) (0.0-0.7) K/uL Baso # (Auto) (0.0-0.1) K/uL Nucleated RBC % /100WBC Nucleated RBCs # K/uL Sodium 141 (136-146) mmol/L Potassium 3.6 (3.5-5.1) mmol/L Chloride 109 (98-110) mmol/L Carbon Dioxide 22 (21-31) mmol/L BUN 8 (6.0-23.0) mg/dL Creatinine 0.7 (0.6-1.5) mg/dL Est Cr Clr Drug Dosing TNP Estimated GFR (MDRD) > 60.0 ml/min Glucose 113 H (60-110) mg/dL Calcium 9.7 (8.8-10.8) mg/dL Total Bilirubin 1.1 (0.1-1.5) mg/dL AST 13 (5-40) IU/L ALT 13 (8-54) IU/L Alkaline Phosphatase 64 (40-150) Total Protein 7.7 (6.0-8.0) g/dL Albumin 4.5 (3.5-5.0) g/dL Globulin 3.2 (2.0-3.5) g/dL Albumin/Globulin Ratio 1.4 (1.3-2.8) Urine Color Urine Appearance Urine pH (5.0-8.0) Ur Specific [place] (1.001-1.035) Urine Protein (NEGATIVE) mg/dL Urine Glucose (UA) (NEGATIVE) mg/dL Urine Ketones (NEGATIVE) mg/dL Urine Occult Blood (NEGATIVE) Urine Nitrite (NEGATIVE) Urine Bilirubin (NEGATIVE) Urine Urobilinogen (<2.0) EU/dL Ur Leukocyte Esterase (NEGATIVE) Urine RBC (0-2/HPF) Urine WBC (0-5/HPF) Ur Epithelial Cells (NONE-FEW) Urine Bacteria (NEGATIVE) Urine HCG, Qual (NEGATIVE) Meds: Medications Discontinued Medications Generic Name Dose Route Start Last Admin Trade Name Freq PRN Reason Stop Dose Admin Iopamidol 78 ml 10/02/16 14:22 10/02/16 14:23 Isovue Multipack-370 (76%) IVPUSH 10/02/16 14:23 78 ml ONETIME STA Administration Departure - Departure Time of Disposition: 15:01 Disposition: Home, Self-Care 01 Condition: good Clinical Impression: Ovarian cyst - Discharge Information Forms: ED Department Discharge Additional Instructions: The following information is given to patients seen in the emergency department who are being discharged to home. This information is to outline your options for follow-up care. We provide all patients seen in our emergency department with a follow-up referral. The need for follow-up, as well as the timing and circumstances, are variable depending upon the specifics of your emergency department visit. If you don't have a primary care physician on staff, we will provide you with a referral. We always advise you to contact your personal physician following an emergency department visit to inform them of the circumstance of the visit and for follow-up with them and/or the need for any referrals to a consulting specialist. The emergency department will also refer you to a specialist when appropriate. This referral assures that you have the opportunity for follow-up care with a specialist. All of these measure are taken in an effort to provide you with optimal care, which includes your follow-up. Under all circumstances we always encourage you to contact your private physician who remains a resource for coordinating your care. When calling for follow-up care, please make the office aware that this follow-up is from your recent emergency room visit. If for any reason you are refused follow-up, please contact the [facility] Emergency Department at and asked to speak to the emergency department charge nurse. Followup with women's health for deep or further diagnostics about treatment and /or interventions for ovarian cyst Return to ED as needed as discussed
[2016-10-02] MEDS ORDERED: Iopamidol 755 MG/ML 500 ML Multipack Bottle IVPUSH STA (14:22)
--- NOTE | 2016-10-02 14:59 | CT ---
CT of the abdomen and pelvis with contrast. HISTORY: Pain TECHNIQUE: Axial CT images were obtained of the abdomen and pelvis following administration of 78 mL of Isovue-370 in the right antecubital fossa without complication. Coronal and sagittal reconstruct ions obtained. FINDINGS: The lung bases are clear, no pleural effusion. There is mild focal fatty infiltration of the liver near the falciform ligament. Cholecystectomy cli ps are noted. Spleen, adrenal glands, and pancreas appear normal. No bulky retroperitoneal lymphaden opathy. The kidneys enhance and function symmetrically without evidence of obstructive uropathy. Small renal cortical cysts are noted. The large and small bowel are normal in caliber without evidence of obstruction. Appendectomy. No fo thomas pericolonic inflammation. Hysterectomy. The urinary bladder appears normal. There is a small 2.5 cm right ovarian cyst. No bulky pelvic lymphadenopathy or free pelvic fluid. No suspicious osseous abnormalities identified. IMPRESSION: 1. No acute findings demonstrated within the abdomen or pelvis. 2. Cholecystectomy, and appendectomy, and hysterectomy.
[2016-10-02 15:17] VITALS: BP 104/66
== END 2016-10-02 15:17 | disposition home or self-care (01) ==
LOC: MW.ED 12:39
DX: N83.209 Unspecified ovarian cyst, unspecified side (principal); J45.909 Unspecified asthma, uncomplicated; G89.29 Other chronic pain; M54.9 Dorsalgia, unspecified; Z88.8 Allergy status to other drugs, medicaments and biological substances; Z90.710 Acquired absence of both cervix and uterus; Z79.899 Other long term (current) drug therapy
CPT/HCPCS: 36415; 74177; 80053; 81001; 81025; 85025; 99284; Q9967

== ENCOUNTER 2016-10-21 13:01 | Emergency (ER) | payer BC ==
--- NOTE | 2016-10-21 13:39 | EDM.PDOC ---
ED HPI GENERAL MEDICAL PROBLEM - General Chief Complaint: Lower Extremity Injury/Pain Stated Complaint: LEFT LEG PAIN,SWOLLEN Time Seen by Provider: 10/21/16 13:13 - History of Present Illness INITIAL COMMENTS - FREE TEXT/NARRATIVE: HISTORY AND PHYSICAL: History of present illness: The patient is a 36-year-old female who says that she has been having some pain at the lateral aspect of her left foot but denies any injury, and this pain is been ongoing for the last 1 week but got worse over the last 3 days. She states she noticed swelling at the lateral aspect of the foot and thinks that the bone is more prominent at the lateral aspect of the left foot. She says that she is also now starting to have some pain in the great toe and that the pain is starting to radiate up the back of her ankle and up the back of her leg. He has no discrete calf tenderness and no proximal tenderness in the knee , thigh or hip tenderness. She denies any trauma to the area but feels that the pain is shooting up from the foot up the back of her leg. Patient denies any other systemic complaints and she has not seen a senior java data architect or family doctor for this problem Review of systems: As per history of present illness and below otherwise all systems reviewed and negative. Past medical history: As per history of present illness and as reviewed below otherwise noncontributory. Surgical history: As per history of present illness and as reviewed below otherwise noncontributory. Social history: No reported history of drug or alcohol abuse. Family history: As per history of present illness and as reviewed below otherwise noncontributory. Physical exam: Gen.: Well-developed well-nourished female who seems somewhat nervous and anxious in the ED but is nontoxic HEENT: Atraumatic, normocephalic, negative for conjunctival pallor or scleral icterus, mucous membranes moist, throat clear, neck supple, nontender, trachea midline. Lungs: Clear to auscultation, breath sounds equal bilaterally, chest nontender. Heart: S1S2, regular rate and rhythm no murmurs. Pelvis: Stable nontender. Genitourinary: Deferred. Rectal: Deferred. Extremities: Atraumatic, there is tenderness to palpation of the lateral aspect of the left foot more specifically at the metatarsal but there are no bony deformities swelling ecchymosis or erythema. There is some diffuse dorsal tenderness at the foot but again no abnormalities are appreciated. There is no calf tenderness or swelling and there is no ankle bony tenderness or soft tissue swelling. negative for cords or calf pain. Neurovascular unremarkable. Neuro: Awake, alert, oriented. Cranial nerves II through XII unremarkable. Cerebellum unremarkable. Motor and sensory unremarkable throughout. Exam nonfocal. Diagnostics: X-ray left foot Therapeutics: Please note the patient has specifically told me that she does not have an allergy to Tylenol and Motrin and Toradol upset her stomach that's what she avoids them. She says that she has taken tramadol and hydrocodone in the past without problems. I will give her a prescription for pain medications for home. I was able to get the patient a follow-up appointment with Dr. Arias Wednesday at 9 :30 AM to further evaluate her foot pain Impression: Left foot pain Definitive disposition and diagnosis as appropriate pending reevaluation and review of above. left foot Pain Score (Numeric/FACES): 7 - Related Data Allergies Allergy/AdvReac Type Severity Reaction Status Date / Time acetaminophen [From Percocet] Allergy Itching Verified 10/21/16 13:22 amoxicillin Allergy Other Verified 10/21/16 13:22 codeine Allergy Itching Verified 10/21/16 13:22 crab Allergy Itching Verified 10/21/16 13:22 ketorolac [From Toradol] Allergy Vomiting Verified 10/21/16 13:22 latex Allergy Anaphylactic Verified 10/21/16 13:22 Shock meperidine HCl [From Demerol] Allergy Itching Verified 10/21/16 13:22 oxycodone HCl [From Percocet] Allergy Itching Verified 10/21/16 13:22 Penicillins Allergy Other Verified 10/21/16 13:22 prochlorperazine edisylate Allergy Anxiety Verified 10/21/16 13:22 [From Compazine] prochlorperazine maleate Allergy Anxiety Verified 10/21/16 13:22 [From Compazine] Home Meds: Home Meds EPINEPHrine [Epipen] 1 dose SQ ASDIRECTED PRN 04/08/16 [History] Past Medical History HEENT History: Reports: 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) Other HEENT History: wears glasses Cardiovascular History: Reports: None Respiratory History: Reports: Asthma Other Respiratory History: states asthma in the past as child - no current inhaler Gastrointestinal History: Reports: GERD Genitourinary History: Reports: Renal Calculus LEI SELLER History: Reports: , 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) Musculoskeletal History: Reports: Back Pain, Chronic, Fracture, Fibromyalgia, 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) Other Musculoskeletal History: hx of fx toe Neurological History: Reports: None Psychiatric History: Reports: Anxiety, Depression Endocrine/Metabolic History: Reports: None, 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) Other Endocrine/Metabolic History: has thyroid nodules Hematologic History: Reports: None Immunologic History: Reports: None Oncologic (Cancer) History: Reports: None Dermatologic History: Reports: None - Infectious Disease History Infectious Disease History: Reports: Chicken Pox - Past Surgical History Head Surgeries/Procedures: Reports: None Cardiovascular Surgical History: Reports: None Respiratory Surgical History: Reports: None GI Surgical History: Reports: Appendectomy Female Surgical History: Reports: Section, Cystectomy, Hysterectomy , Lithotripsy/ESWL, Tubal Ligation, 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) Neurological Surgical History: Reports: None Oncologic Surgical History: Reports: None Dermatological Surgical History: Reports: None Social & Family History - Family History Family Medical History: Noncontributory - Tobacco Use Smoking Status *Q: Current Every Day Smoker Years of Tobacco use: 5 Packs/Tins Daily: 0.5 Used Tobacco, but Quit: No Month Tobacco Last Used: states she is trying to quit, smokes on average 5 cigarettes per day Second Hand Smoke Exposure: Yes - Caffeine Use Caffeine Use: Reports: Coffee, Soda - Alcohol Use Days Per Week of Alcohol Use: 0 - Recreational Drug Use Recreational Drug Use: No Drug Use in Last 12 Months: No Review of Systems - Review of Systems Review Of Systems: ROS reveals no pertinent complaints other than HPI. ED EXAM, GENERAL - Physical Exam Exam: See Below (See dictation) Course - Vital Signs Last Recorded V/S: Last Vital Signs Temp 36.4 C 10/21/16 13:22 Pulse 75 10/21/16 14:06 Resp 18 10/21/16 13:22 BP 103/66 10/21/16 14:06 Pulse Ox 97 10/21/16 14:06 Departure - Departure Time of Disposition: 14:13 Disposition: Home, Self-Care 01 Condition: Good Clinical Impression: Foot pain, left - Discharge Information Forms: ED Department Discharge Additional Instructions: The following information is given to patients seen in the emergency department who are being discharged to home. This information is to outline your options for follow-up care. We provide all patients seen in our emergency department with a follow-up referral. The need for follow-up, as well as the timing and circumstances, are variable depending upon the specifics of your emergency department visit. If you don't have a primary care physician on staff, we will provide you with a referral. We always advise you to contact your personal physician following an emergency department visit to inform them of the circumstance of the visit and for follow-up with them and/or the need for any referrals to a consulting specialist. The emergency department will also refer you to a specialist when appropriate. This referral assures that you have the opportunity for followup care with a specialist. All of these measure are taken in an effort to provide you with optimal care, which includes your followup. Under all circumstances we always encourage you to contact your private physician who remains a resource for coordinating your care. When calling for followup care, please make the office aware that this follow-up is from your recent emergency room visit. If for any reason you are refused follow-up, please contact the [facility] emergency department at and ask to speak to the emergency department charge nurse. [facility] [place] [address] Dr Leo Arias [address] [place] [id number] Ice and elevate the area as needed and try to not walk on the foot as much as you're able. Use prescribed medications as needed for pain and please keep your follow-up appointment with the senior java data architect on Wednesday at 9:[address] Arias. Return to ER as needed as discussed. Use cane as needed
--- NOTE | 2016-10-21 13:56 | CR ---
EXAMINATION: Left foot HISTORY: Injury COMPARISON: None TECHNIQUE: 3 views FINDINGS/IMPRESSION: There is no acute osseous abnormality, dislocation, or fracture identified. Bon e mineralization, soft tissues and joint spaces appear normal. There is a moderate plantar calcaneal spur.
[2016-10-21 14:12] VITALS: BP 103/66
== END 2016-10-21 14:25 | disposition home or self-care (01) ==
LOC: MW.ED 13:01
DX: M79.672 Pain in left foot (principal); J45.909 Unspecified asthma, uncomplicated; K21.9 Gastro-esophageal reflux disease without esophagitis; F41.9 Anxiety disorder, unspecified; F32.9 Major depressive disorder, single episode, unspecified; F17.210 Nicotine dependence, cigarettes, uncomplicated; Z90.49 Acquired absence of other specified parts of digestive tract; Z90.710 Acquired absence of both cervix and uterus; Z98.51 Tubal ligation status; Z90.6 Acquired absence of other parts of urinary tract; Z87.442 Personal history of urinary calculi; Z88.0 Allergy status to penicillin; Z88.1 Allergy status to other antibiotic agents; Z88.5 Allergy status to narcotic agent; Z88.6 Allergy status to analgesic agent; Z88.8 Allergy status to other drugs, medicaments and biological substances
CPT/HCPCS: 73630-26-LT; 73630-LT; 99283